=== PATIENT | female | born 2000 | race Two or more races ===

== ENCOUNTER 2023-04-19 20:53 | Emergency (ER) | payer BC ==
[2023-04-19] MEDS ORDERED: Lactated Ringers 1,000 ML IV ONE (21:32)
[2023-04-19] MEDS ORDERED: Acetaminophen 500 MG Tab PO ONE (21:32)
[2023-04-19 21:53] LABS: BILIRUBIN,URINE NEGATIVE (NEGATIVE); COLOR,URINE YELLOW; GLUCOSE,URINE NEGATIVE (NEGATIVE); KETONES,URINE NEGATIVE (NEGATIVE); LEUKOCYTE ESTERASE,URINE SMALL (NEGATIVE); NITRITE,URINE NEGATIVE (NEGATIVE); OCCULT BLOOD,URINE NEGATIVE (NEGATIVE); PH,URINE 6.5 (5.0-8.0); PROTEIN,URINE NEGATIVE (NEGATIVE); UROBILINOGEN,URINE 0.2 EU/dL (<2.0)
[2023-04-19 21:54] LABS: BASOPHILS PERCENT AUTO 0.2 % (0.0-1.5); EOSINOPHILS PERCENT AUTO 0.1 % (0.0-7.0); HEMATOCRIT 38.9 % (36.0-46.0); HEMOGLOBIN 13.7 g/dL (12.0-16.0); LYMPHOCYTES ABSOLUTE AUTO 0.7 K/uL (0.6-2.4); MEAN CORPUSCULAR HEMOGLOBIN 31.1 pg (27.0-32.0); MEAN CORPUSCULAR HGB CONC 35.2 g/dL (31.0-37.0); MEAN CORPUSCULAR VOLUME 88.2 fL (80.0-98.0); MONOCYTES ABSOLUTE AUTO 0.8 K/uL (0.0-0.8); MONOCYTES PERCENT AUTO 9.5 % (0.0-15.0); NEUTROPHILS ABSOLUTE AUTO 7.2 K/uL (1.4-5.7); NEUTROPHILS PERCENT AUTO 82.2 % (48.0-80.0); NRBC ABSOLUTE 0 K/uL; PLATELET COUNT,PLT 271 K/uL (150-400); RED BLOOD CELL COUNT 4.41 M/uL (4.30-5.90); WHITE BLOOD CELL COUNT,WBC 8.73 K/uL (4.0-11.0)
[2023-04-19 22:00] LABS: APPEARANCE,URINE SLT CLOUDY; BACTERIA,URINE FEW (NEGATIVE); EPITHELIAL CELLS,URINE MANY (NONE-FEW); RBC,URINE 0-2 (0-2/HPF)
[2023-04-19 22:37] LABS: LACTIC ACID 1.2 mmol/L (0.4-2.0)
[2023-04-19 22:45] LABS: A/G RATIO 0.9 (0.9-1.6); ALBUMIN 3.8 g/dL (3.4-5.0); BILIRUBIN TOTAL 0.2 mg/dL (0.2-1.0); CALCIUM 9.3 mg/dL (8.5-10.1); CARBON DIOXIDE,CO2 25.9 mmol/L (21.0-32.0); CREATININE 0.5 mg/dL (0.6-1.0); EST CRCL DRUG DOSING (CG) 135.43 mL/min; MAGNESIUM 1.6 mg/dL (1.8-2.4); POTASSIUM,K 3.6 mmol/L (3.5-5.1)
== END 2023-04-19 23:35 | disposition home or self-care (01) ==
LOC: MW.ED 20:53
DX: O98.511 Other viral diseases complicating pregnancy, first trimester (principal); U07.1 COVID-19; M54.50 Low back pain, unspecified; Q51.3 Bicornate uterus; Z3A.11 11 weeks gestation of pregnancy
CPT/HCPCS: 36415; 76801; 80053; 81001; 82009; 83605; 83690; 83735; 84702; 85025; 87635; 96360; 99284; A9270; J7120; 99283; U0002